=== PATIENT | male | born 1950 | race Caucasian/White ===

== ENCOUNTER 2016-07-25 11:04 | Emergency (ER) | payer MEDICARE, OTHER ==
[~2016-07-25] VITALS: Ht 177.8 cm; Wt 90.9 kg
[2016-07-25] MEDS ORDERED: HALO10TA15 PO (12:32)
[2016-07-25] MEDS ORDERED: OLAN10TA6 PO (12:32)
[2016-07-25] MEDS ORDERED: TRAM50TA4 PO (12:32)
[2016-07-25] MEDS ORDERED: AMLO-511 PO (12:32)
[2016-07-25] MEDS ORDERED: HYDR25TA PO (12:32)
[2016-07-25] MEDS ORDERED: TRAZ-147 PO (12:32)
[2016-07-25] MEDS ORDERED: PANT40TA25 PO (12:32)
[2016-07-25] MEDS ORDERED: POTA25TA7 PO (12:32)
[2016-07-25] MEDS ORDERED: ZOLP10 PO (12:32)
[2016-07-25 14:13] LABS: BASOPHILS % (AUTO) 0.3 % (0.0-2.0); EOSINOPHILS % (AUTO) 0.2 % (1.0-6.0); HEMATOCRIT 44.9 % (41-53); HEMOGLOBIN 14.4 g/dL (13.5-17.5); LYMPHOCYTES # (AUTO) 1.2 K/uL (1.0-4.8); LYMPHOCYTES % (AUTO) 15.7 % (22.0-44.0); MEAN CORPUSCULAR HEMOGLOBIN 31.3 pg (26.0-34.0); MEAN CORPUSCULAR HGB CONC 32.1 G/dL (31.0-37.0); MEAN CORPUSCULAR VOLUME 98 fL (80-100); MONOCYTES # (AUTO) 0.4 K/uL (0.1-1.0); MONOCYTES % (AUTO) 5.9 % (2.0-9.0); NEUTROPHILS # (AUTO) 5.9 K/uL (1.8-7.7); NEUTROPHILS % (AUTO) 77.9 % (40.0-70.0); PLATELET COUNT (AUTO) 285 K/uL (150-450); RED BLOOD CELL COUNT(AUTO) 4.59 MIL/uL (4.50-5.90); RED CELL DISTRIBUTION WIDTH 14.4 % (11.5-14.5); WHITE BLOOD COUNT (AUTO) 7.6 K/uL (4.5-11.0)
[2016-07-25 14:25] LABS: ANION GAP 6 mmol/L (8-16); CALCIUM, TOTAL 8.7 mg/dL (8.8-10.5); CARBON DIOXIDE 30 mmol/L (22-29); CHLORIDE 101 mmol/L (98-107); CREATININE 1.48 mg/dL (0.60-1.30); GLOMERULAR FILTR. RATE CALC 48 mL/min (>60); POTASSIUM 4.1 mmol/L (3.5-5.1); SODIUM SERUM 137 mmol/L (136-145); UREA NITROGEN, BLOOD 13 mg/dL (7-18)
[2016-07-25 14:29] LABS: ALANINE AMINOTRANSFERASE 33 U/L (12-78); ALBUMIN 3.4 g/dL (3.4-5.0); ASPARTATE AMINOTRANSFERASE 21 U/L (15-37); BILIRUBIN,TOTAL 0.5 mg/dL (0.1-1.0); TOTAL PROTEIN, SERUM 6.9 g/dL (6.4-8.2)
[2016-07-25] MEDS ORDERED: HALOPERIDOL 5 MG TABLET PO ONE (16:00)
[2016-07-25 16:09] VITALS: BP 122/60
== END 2016-07-25 16:57 | disposition home or self-care (01) ==
LOC: CARDMN 11:08 → EMS 16:57
DX: F29 Unspecified psychosis not due to a substance or known physiological condition (principal); F13.20 Sedative, hypnotic or anxiolytic dependence, uncomplicated
CPT/HCPCS: 36415; 80053; 85025; 99285; G0480